=== PATIENT | male | born 1995 | race Caucasian/White ===

== ENCOUNTER 2016-06-28 12:09 | Emergency (ER) | payer BC, OTHER ==
--- NOTE | 2016-06-28 12:55 | Emergency Department Record ---
History of Present Illness - General Chief Complaint: Cough Stated Complaint: COUGHING/SOB Time Seen by Provider: 06/28/16 12:44 Source: Patient Mode of Arrival: Ambulatory - History of Present Illness Initial Comments: cough and [facility] at [facility] chest xray and flu neg 3 days ago and he is still coughing and returned to the ED Complaint: Cough Onset/Timin -: Week(s) Consistency: Intermittent - Related Data Allergies Allergy/AdvReac Type Severity Reaction Status Date / Time No Known Allergies Allergy NONE Verified 06/28/16 12:27 Travel Screening - Travel/Exposure Within Last 30 Days Have you traveled within the last 30 days?: No - Travel/Exposure Within Last Year Have you traveled outside the [place] in the last year?: No - Additonal Travel Details Have you been exposed to anyone with a communicable illness?: No - Travel Symptoms Symptom Screening: None Review of Systems Reviewed: No additional complaints except as noted below Constitutional: Reports: As per HPI. Denies: Chills, Fever, Malaise, Night sweats, Weakness, Weight change Eyes: Reports: As per HPI. Denies: Eye discharge, Eye pain, Photophobia, Vision change ENT: Reports: As per HPI, Congestion, Throat pain. Denies: Dental pain, Ear pain, Epistaxis, Hearing loss Respiratory: Reports: As per HPI, Cough. Denies: Dyspnea, Hemoptysis, Stridor, Wheezes Cardiovascular: Reports: As per HPI. Denies: Arrhythmia, Chest pain, Dyspnea on exertion, Edema, Murmurs, Orthopnea, Palpitations, Paroxysmal nocturnal dyspnea, Rheumatic Fever, Syncope Endocrine: Reports: As per HPI. Denies: Fatigue, Heat or cold intolerance, Polydipsia, Polyuria Gastrointestinal: Reports: As per HPI. Denies: Abdominal pain, Constipation, Diarrhea, Hematemesis, Hematochezia, Melena, Nausea, Vomiting Genitourinary: Reports: As per HPI. Denies: Dysuria, Frequency, Hematuria, Incontinence, Retention, Testicular pain, Testicular mass, Urgency Musculoskeletal: Reports: As per HPI. Denies: Arthralgia, Back pain, Gout, Joint swelling, Myalgia, Neck pain Skin: Reports: As per HPI. Denies: Bruising, Change in color, Change in hair/ nails, Lesions, Pruritus, Rash Neurological: Reports: As per HPI. Denies: Abnormal gait, Confusion, Headache, Numbness, Paresthesias, Seizure, Tingling, Tremors, Vertigo, Weakness Psychiatric: Reports: As per HPI. Denies: Anxiety, Auditory hallucinations, Depression, Homicidal thoughts, Suicidal thoughts, Visual hallucinations Hematological/Lymphatic: Reports: As per HPI. Denies: Anemia, Blood Clots, Easy bleeding, Easy bruising, Swollen glands Past Medical History - SOCIAL HISTORY Smoking Status: Current some day smoker Alcohol Use: Occassional Drug Use: None - RESPIRATORY Hx Respiratory Disorders: No - CARDIOVASCULAR Hx Cardio Disorders: No - NEURO Hx Neuro Disorders: No - GI Hx GI Disorders: No - Hx Genitourinary Disorders: No - ENDOCRINE Hx Endocrine Disorders: No - MUSCULOSKELETAL Hx Musculoskeletal Disorders: No - PSYCH Hx Psych Problems: No - HEMATOLOGY/ONCOLOGY Hx Hematology/Oncology Disorders: No Family Medical History Any Significant Family History?: No Physical Exam - General General Appearance: Alert, Oriented x3, Cooperative, No acute distress - Head Head exam: Normal inspection - Eye Eye exam: Normal appearance, PERRL Pupils: Normal accommodation - ENT ENT exam: Normal exam, Mucous membranes moist, Normal external ear exam, Normal orophraynx, TM's normal bilaterally Ear exam: Normal external inspection. negative: External canal tenderness Nasal Exam: Normal inspection. negative: Discharge, Sinus tenderness Mouth exam: Normal external inspection, Tongue normal Teeth exam: Normal inspection. negative: Dental caries Throat exam: Normal inspection. negative: Tonsillar erythema, Tonsillar exudate - Neck Neck exam: Normal inspection, Full ROM. negative: Tenderness - Respiratory Respiratory exam: Normal lung sounds bilaterally. negative: Respiratory distress - Cardiovascular Cardiovascular Exam: Regular rate, Normal rhythm, Normal heart sounds - GI/Abdominal GI/Abdominal exam: Soft, Normal bowel sounds. negative: Tenderness - Rectal Rectal exam: Deferred - exam: Deferred - Extremities Extremities exam: Normal inspection, Full ROM, Normal capillary refill. negative: Tenderness - Back Back exam: Reports: Normal inspection, Full ROM. Denies: Muscle spasm, Rash noted, Tenderness - Neurological Neurological exam: Alert, Normal gait, Oriented X3, Reflexes normal - Psychiatric Psychiatric exam: Normal affect, Normal mood - Skin Skin exam: Dry, Intact, Normal color, Warm Course Vital Signs 06/28/16 12:27 Temperature 98.8 F Pulse Rate 81 Respiratory 20 Rate Blood Pressure 123/83 Pulse Ox 98 Medical Decision Making - Data Complexity MDM Data: Labs Ordered and/or Reviewed (flu positive) - Lab Data Result diagrams: 06/28/16 13:50 Disposition Clinical Impression: Influenza B Disposition: Home, Self-Care Condition: (1) Good Instructions: Influenza (ED) Additional Instructions: fluids and rest follow up with family in 5 days kermit NGUYEN two teaspoons every 4 hours Forms: Patient Portal Access Time of Disposition: 14:17
[2016-06-28 13:55] LABS: HEMATOCRIT 44.2 % (42.0-52.0); HEMOGLOBIN 15.2 gm/dl (14.0-18.0); MEAN CELL VOLUME 89.5 fl (81-97); MEAN CORPUSCULAR HEMOGLOBIN 30.8 pg (27-33); MEAN CORPUSCULAR HGB CONC 34.4 g/dl (32-36); MEAN PLATELET VOLUME 10.3 fl (7.4-10.4); PLATELET COUNT 214 K/uL (130-400); RED BLOOD COUNT 4.94 M/uL (4.40-5.70); RED CELL DISTRIBUTION WIDTH 12.5 % (11.5-14.5); WHITE BLOOD COUNT W/O DIFF 7.7 K/uL (4.2-12.2)
[2016-06-28 14:07] LABS: INFLUENZA A NEGATIVE (NEGATIVE); INFLUENZA B POSITIVE (NEGATIVE)
== END 2016-06-28 14:38 | disposition home or self-care (01) ==
LOC: ER 12:09
DX: J10.1 Influenza due to other identified influenza virus with other respiratory manifestations (principal); R06.02 Shortness of breath
CPT/HCPCS: 85027; 87400; 99283

== ENCOUNTER 2016-09-07 10:53 | Emergency (ER) | payer BC ==
[2016-09-07] MEDS ORDERED: 0.9 % SODIUM CHLORIDE 1,000 ML BAG IV ONE (11:07)
--- NOTE | 2016-09-07 11:07 | Emergency Department Record ---
History of Present Illness - General Chief Complaint: Abdominal Pain Stated Complaint: ABD PAIN Time Seen by Provider: 09/07/16 10:57 Source: Patient Mode of Arrival: Ambulatory Limitations: No limitations - History of Present Illness Initial Comments: 21 yo male presents with one month of recurring left sided chest pain that last 5-20 minutes and is sharp. It is only on the left. No shortness of breath. He has a mild cough that is normal from his smoking. The last 24 hours he has had left sided abdominal pain that is sharp and he thinks he feels a lump. No NVD. No hematuria. No rash. No fever. No history of heart or lung disease. No abdominal surgery history. MD Complaint: Abdominal pain -: Month(s) Location: L Flank, LUQ Radiation: L flank Migration to: L Flank Severity: Moderate Quality: Sharp Consistency: Intermittent Improves With: Rest Worsens With: Movement Associated Symptoms: Denies other symptoms - Related Data Home Medications Medication Instructions Recorded Confirmed Last Taken No Home Med [NO HOME MEDS] 09/07/16 09/07/16 Unknown Allergies Allergy/AdvReac Type Severity Reaction Status Date / Time No Known Allergies Allergy NONE Verified 09/07/16 11:02 Review of Systems Constitutional: Denies: Chills, Fever, Malaise, Weakness Eyes: Denies: Eye discharge ENT: Denies: Congestion, Ear pain, Epistaxis, Throat pain Respiratory: Reports: Cough. Denies: Dyspnea, Hemoptysis, Stridor, Wheezes Cardiovascular: Reports: Chest pain. Denies: Palpitations, Syncope Endocrine: Denies: Fatigue, Polydipsia, Polyuria Gastrointestinal: Reports: As per HPI, Abdominal pain. Denies: Diarrhea, Nausea , Vomiting Genitourinary: Denies: Dysuria, Frequency, Hematuria Musculoskeletal: Denies: Arthralgia, Back pain, Joint swelling, Myalgia, Neck pain Skin: Denies: Bruising, Change in color, Rash Neurological: Denies: Headache, Numbness, Vertigo, Weakness Psychiatric: Denies: Anxiety Hematological/Lymphatic: Denies: Blood Clots, Easy bleeding, Easy bruising, Swollen glands Past Medical History - SOCIAL HISTORY Smoking Status: Current some day smoker Drug Use: None - RESPIRATORY Hx Respiratory Disorders: No - CARDIOVASCULAR Hx Cardio Disorders: No - NEURO Hx Neuro Disorders: No - GI Hx GI Disorders: No - Hx Genitourinary Disorders: No - ENDOCRINE Hx Endocrine Disorders: No - MUSCULOSKELETAL Hx Musculoskeletal Disorders: No - PSYCH Hx Psych Problems: No - HEMATOLOGY/ONCOLOGY Hx Hematology/Oncology Disorders: No Physical Exam - General General Appearance: Alert, Oriented x3, Cooperative, No acute distress Limitations: No limitations - Head Head exam: Normal inspection - Eye Eye exam: Normal appearance, PERRL. negative: Conjunctival injection, Periorbital swelling - ENT ENT exam: Normal exam Ear exam: Normal external inspection Nasal Exam: Normal inspection Mouth exam: Normal external inspection Teeth exam: Normal inspection Throat exam: Normal inspection - Neck Neck exam: Normal inspection, Full ROM. negative: Tenderness - Respiratory Respiratory exam: Normal lung sounds bilaterally, Chest wall tenderness. negative: Accessory muscle use, Decreased breath sounds, Prolonged expiratory, Rales, Respiratory distress, Rhonchi, Stridor, Wheezes - Cardiovascular Cardiovascular Exam: Regular rate, Normal rhythm, Normal heart sounds Peripheral Pulses: 2+: Radial (R), Radial (L) - GI/Abdominal GI/Abdominal exam: Soft, Tenderness (tender left lateral abdomen, no mass, no hernia). negative: Distended, Guarding, Hernia, Rebound, Rigid - Rectal Rectal exam: Deferred - exam: Deferred - Extremities Extremities exam: Normal inspection, Full ROM, Normal capillary refill. negative: Tenderness - Back Back exam: Reports: Normal inspection, CVA tenderness (L). Denies: Full ROM, Paraspinal tenderness - Neurological Neurological exam: Alert, Normal gait, Oriented X3, Reflexes normal - Psychiatric Psychiatric exam: Normal affect, Normal mood Course - Reevaluation(s) Reevaluation #1: EKG 11:11 NSR rate 81, Intervals normal, [place] normal, ST no acute changes, normal variant early repol. 09/07/16 11:25 Reevaluation #2: The CBC and UA were reviewed and are normal. 09/07/16 11:51 Reevaluation #3: There are no acute changes on his BMP I preliminarily reviewed the CXR and CT of the abdomen and pelvis. No acute changes noted. The final reads will be reviewed as well. The patient is resting comfortably. 09/07/16 12:01 Reevaluation #4: final CXR and CT reports reviewed. No acute changes or findings. 09/07/16 12:44 Medical Decision Making - Lab Data Result diagrams: 09/07/16 11:14 09/07/16 11:14 Disposition Disposition: Discharge Clinical Impression: Atypical chest pain Abdominal pain Qualifiers: Abdominal location: unspecified location Qualified Code(s): R10.9 - Unspecified abdominal pain Disposition: Home, Self-Care Condition: (1) Good Instructions: Abdominal Pain (ED) Additional Instructions: Call your doctor in the family medicine clinic for close follow up of your pains and to review the tests performed today in the ER Return if worse, fever, short of breath, fever, or any new concerns Forms: Patient Portal Access Time of Disposition: 12:45
[2016-09-07] MEDS ORDERED: KETOROLAC 30 MG/ML VIAL IVP ONE (11:11)
[2016-09-07 11:48] LABS: BASO % 0.6 % (0-6); EOS % 0.4 % (0-6); GRAN % 68.9 % (47-80); HEMATOCRIT 42.1 % (42.0-52.0); HEMOGLOBIN 14.9 gm/dl (14.0-18.0); LYMPH % 21.6 % (16-45); MEAN CELL VOLUME 87.9 fl (81-97); MEAN CORPUSCULAR HEMOGLOBIN 31.1 pg (27-33); MEAN CORPUSCULAR HGB CONC 35.4 g/dl (32-36); MEAN PLATELET VOLUME 10.6 fl (7.4-10.4); MONO % 8.5 % (0-9); PLATELET COUNT 247 K/uL (130-400); RED BLOOD COUNT 4.79 M/uL (4.40-5.70); RED CELL DISTRIBUTION WIDTH 11.9 % (11.5-14.5); URINE APPEARANCE CLEAR; URINE BILIRUBIN NEGATIVE (NEGATIVE); URINE BLOOD NEGATIVE (NEGATIVE); URINE COLOR YELLOW; URINE GLUCOSE (UA) NEGATIVE (NEGATIVE); URINE KETONE NEGATIVE (NEGATIVE); URINE LEUKOCYTE ESTERASE NEGATIVE (NEGATIVE); URINE NITRITE NEGATIVE (NEGATIVE); URINE PROTEIN NEGATIVE (NEGATIVE); URINE UROBILINOGEN 0.2 E.U./dL (0.20 - 1.00); WHITE BLOOD COUNT W/O DIFF 4.8 K/uL (4.2-12.2)
[2016-09-07 11:59] LABS: ANION GAP 8.2 (7-16); BLOOD UREA NITROGEN 17 mg/dL (9-20); CARBON DIOXIDE 25.8 mmol/L (22-30); CREATININE 0.9 mg/dL (0.66-1.25); EST GLOMERULAR FILTRATION RATE > 60 ml/min; GLUCOSE,RANDOM 94 mg/dL (70-110)
--- NOTE | 2016-09-07 15:04 | RADIOLOGY REPORT ---
EXAM: CHEST, TWO VIEWS HISTORY: DIZZINESS, LEFT SIDED CHEST PAIN. TECHNIQUE: PA and lateral views of the chest were obtained. Comparison: Two view chest 06/26/16. FINDINGS: The heart size is normal. The lungs appear expanded with no acute infiltrate seen. No pleural effusion or pneumothorax evident. No significant soft change identified from the prior study. IMPRESSION: NEGATIVE CHEST EXAMINATION. JOB NUMBER: [id number] MTDD
--- NOTE | 2016-09-07 15:10 | CT SCAN REPORT ---
EXAM: CT OF THE ABDOMEN AND PELVIS WITHOUT CONTRAST HISTORY: LEFT LOWER QUADRANT SHARP PAIN FOR A DAY, FLANK PAIN. TECHNIQUE: Axial CT scan of the abdomen and pelvis was performed without oral or IV contrast. Comparison: None. FINDINGS: No calcified gallstones are seen within the gallbladder. No intrarenal calculus identified on either side. No hydronephrosis or hydroureter is seen on either side. As such it is quite difficult to follow the entire course of both ureters in their nondilated state throughout the retroperitoneum and pelvis, but no definite ureteral calculus identified and no bladder calculus seen. Evaluation of the bowel and viscera is very limited without oral or IV contrast. Given this limitation, no definite hepatic, splenic, adrenal, pancreatic, or renal mass identified. The appendix appears to be visualized as a normal caliber structure with no appendicitis evident. Some thin collections of air in the right lower quadrant are probably actually intraluminal in relatively collapsed small bowel loops. No convincing evidence of free intraperitoneal air or free intraperitoneal fluid evident. The lung bases appear clear. IMPRESSION: 1. NO DEFINITE URINARY TRACT CALCULI OR HYDRONEPHROSIS IDENTIFIED. 2. THE APPENDIX APPEARS NEGATIVE. NO DEFINITE FREE AIR OR FREE FLUID EVIDENT. JOB NUMBER: [id number] MTDD
== END 2016-09-07 13:18 | disposition home or self-care (01) ==
LOC: ER 10:53
DX: R07.89 Other chest pain (principal); R10.12 Left upper quadrant pain; R42 Dizziness and giddiness; R20.0 Anesthesia of skin; F17.210 Nicotine dependence, cigarettes, uncomplicated
CPT/HCPCS: 99284 ×2; 96374; 96361; 83690; 85025; 80048; 81003; 71020; 74176; 93005; 93010; J1885; J7030

== ENCOUNTER 2017-12-18 23:55 | Emergency (ER) | payer BC ==
[2017-12-19] MEDS ORDERED: ONDANSETRON HCL IV 4 MG/2 ML VIAL IVP ONE (00:04)
[2017-12-19] MEDS ORDERED: MORPHINE SULFATE 10 MG/ML VIAL IVP ONE (00:04)
--- NOTE | 2017-12-19 00:09 | Emergency Department Record ---
History of Present Illness - General Chief Complaint: Abdominal Pain Stated Complaint: ABDOMINAL PAIN Source: Patient Mode of Arrival: Ambulatory Limitations: No limitations - History of Present Illness Initial Comments: 22 yo male presents to ED for evaluation of RLQ pain symptoms that began approximately 7-8 hours ago. Patient reports that his symptoms came on suddenly this afternoon, denies flank pain symptoms of hematuria. Patient denies fevers, chills, or recent illness. Patient denies previous surgery. Patient denies health problems at his baseline other than scoliosis. MD Complaint: Abdominal pain Onset/Timin -: Hour(s) Location: RLQ Radiation: None Migration to: No migration Severity: Severe Quality: Sharp, Stabbing Consistency: Constant Improves With: Nothing Worsens With: Movement Associated Symptoms: Denies other symptoms - Related Data Previous Rx's Medication Instructions Recorded Hyoscyamine Sulfate [Levsin-Sl] 0.25 mg SL Q8H PRN #15 tab.subl 12/19/17 Allergies Allergy/AdvReac Type Severity Reaction Status Date / Time No Known Allergies Allergy NONE Unverified 05/23/17 09:30 Review of Systems Constitutional: Denies: Chills, Fever, Malaise, Night sweats Eyes: Denies: Eye discharge, Eye pain ENT: Denies: Congestion, Ear pain, Epistaxis Respiratory: Denies: Cough, Dyspnea Cardiovascular: Denies: Chest pain, Dyspnea on exertion Endocrine: Denies: Fatigue, Heat or cold intolerance Gastrointestinal: Reports: Abdominal pain. Denies: Nausea, Vomiting Genitourinary: Denies: Testicular pain, Testicular mass Musculoskeletal: Denies: Arthralgia, Back pain Skin: Denies: Bruising, Change in color Neurological: Denies: Abnormal gait, Confusion, Headache, Seizure Psychiatric: Denies: Anxiety Hematological/Lymphatic: Denies: Anemia, Blood Clots Past Medical History - SOCIAL HISTORY Smoking Status: Current some day smoker Drug Use: None - RESPIRATORY Hx Respiratory Disorders: No - CARDIOVASCULAR Hx Cardio Disorders: No - NEURO Hx Neuro Disorders: No - GI Hx GI Disorders: No - Hx Genitourinary Disorders: No - ENDOCRINE Hx Endocrine Disorders: No - MUSCULOSKELETAL Hx Musculoskeletal Disorders: No - PSYCH Hx Psych Problems: No - HEMATOLOGY/ONCOLOGY Hx Hematology/Oncology Disorders: No Physical Exam - General General Appearance: Alert, Oriented x3, Cooperative, Moderate distress Limitations: No limitations - Head Head exam: Atraumatic, Normocephalic, Normal inspection Head exam detail: negative: Abrasion, Contusion, Vasquez's sign, General tenderness, Hematoma, Laceration - Eye Eye exam: Normal appearance. negative: Conjunctival injection, Periorbital swelling, Periorbital tenderness, Scleral icterus - ENT Ear exam: negative: Auricular hematoma, Auricular trauma Nasal Exam: negative: Active bleeding, Discharge, Dried blood, Foreign body Mouth exam: negative: Drooling, Laceration, Muffled voice, Tongue elevation - Neck Neck exam: Normal inspection. negative: Meningismus, Tenderness - Respiratory Respiratory exam: Normal lung sounds bilaterally. negative: Rales, Respiratory distress, Rhonchi, Stridor - Cardiovascular Cardiovascular Exam: Regular rate, Normal rhythm, Normal heart sounds - GI/Abdominal GI/Abdominal exam: Soft, Tenderness (TTP suprapubic/RLQ on examination, no rebound or guarding present). negative: Rebound, Rigid - Rectal Rectal exam: Deferred - exam: Deferred - Extremities Extremities exam: Normal inspection. negative: Calf tenderness, Pedal edema, Tenderness - Back Back exam: Denies: CVA tenderness (R), CVA tenderness (L) - Neurological Neurological exam: Alert, Normal gait, Oriented X3 - Psychiatric Psychiatric exam: Normal affect, Normal mood - Skin Skin exam: Normal color. negative: Abrasion Type of lesion: negative: abrasion Course Vital Signs 12/18/17 23:59 Temperature 97.7 F Pulse Rate [ 92 H Pulse Ox Probe] Respiratory 24 Rate Blood Pressure 134/89 [Left Arm] Pulse Ox 100 - Reevaluation(s) Reevaluation #1: 12/19/17 00:33 Laboratory studies were reviewed and are grossly unremarkable for an acute process. UA pending. Reevaluation #2: 12/19/17 01:00 Patient was reassessed following return from CT imaging, reports improvement in his pain symptoms. Reevaluation #3: 12/19/17 01:26 CT Abdomen and Pelvis: No acute process identified Reevaluation #4: 12/19/17 01:41 UA reviewed and appears negative for blood or infection. Patient reports pain is staring to return, Toradol ordered to infuse. Reevaluation #5: 12/19/17 02:13 Patient reports that his pain symptoms have resolved, repeat abdominal examination is benign and pain free. Patient appears stable for discharge at this time with Levsin as needed for his pain symptoms. Medical Decision Making - Lab Data Result diagrams: 12/19/17 00:10 12/19/17 00:10 Disposition Disposition: Discharge Clinical Impression: Abdominal pain Qualifiers: Abdominal location: right lower quadrant Qualified Code(s): R10.31 - Right lower quadrant pain Disposition: Home, Self-Care Condition: (2) Stable Instructions: Abdominal Pain (ED) Additional Instructions: Return to ED if your symptoms worsen or if you have any concerns. Follow-up with your family doctor in 1-3 days as directed. Levsin as directed. Prescriptions: Hyoscyamine Sulfate [Levsin-Sl] 0.25 mg SL Q8H PRN #15 tab.subl PRN Reason: Abdominal Pain Forms: Patient Portal Access Time of Disposition: 01:27 Quality - Quality Measures Quality Measures: N/A - Blood Pressure Screening Does Patient Have Any of the Following: No Blood Pressure Classification: Pre-Hypertensive BP Reading Systolic Measurement: 134 Diastolic Measurement: 89 Screening for High Blood Pressure: < Pre-Hypertensive BP, F/U Documented > [ G8950] Pre-Hypertensive Follow-up Interventions: Referral to alternative/primary care provider.
[2017-12-19 00:14] LABS: BASO % 0.2 % (0-6); EOS % 0.6 % (0-6); GRAN % 75.1 % (47-80); HEMATOCRIT 46.1 % (42.0-52.0); HEMOGLOBIN 16.6 gm/dl (14.0-18.0); LYMPH % 17.6 % (16-45); MEAN CELL VOLUME 88.3 fl (81-97); MEAN CORPUSCULAR HEMOGLOBIN 31.8 pg (27-33); MEAN PLATELET VOLUME 9.9 fl (7.4-10.4); MONO % 6.5 % (0-9); PLATELET COUNT 279 K/uL (130-400); RED BLOOD COUNT 5.22 M/uL (4.40-5.70); RED CELL DISTRIBUTION WIDTH 12.1 % (11.5-14.5); WHITE BLOOD COUNT W/O DIFF 8.6 K/uL (4.2-12.2)
[2017-12-19] MEDS ORDERED: 0.9 % SODIUM CHLORIDE 1000ML 1,000 ML IV SCH (00:15)
[2017-12-19 00:26] LABS: BLOOD UREA NITROGEN 18 mg/dL (6-20); CREATININE 0.9 mg/dL (0.7-1.2); EST GLOMERULAR FILTRATION RATE > 60 mL/min
[2017-12-19 00:27] LABS: TOTAL PROTEIN 7.5 g/dL (6.6-8.7)
[2017-12-19 00:29] LABS: GLUCOSE,RANDOM 139 mg/dL (74-109)
[2017-12-19 00:32] LABS: ALB/GLOB RATIO 1.9 (1.1-1.8); ALBUMIN 4.9 g/dL (4.0-5.0); ALKALINE PHOSPHATASE 62 U/L (40-129); ALT/SGPT 15 U/L (<41); AST/SGOT 19 U/L (10.0-50.0); LIPASE 34 U/L (13-60)
[2017-12-19] MEDS ORDERED: NICOTINE14 MG/24 HOUR PATCH TD SCH (01:30)
[2017-12-19 01:40] LABS: URINE APPEARANCE CLEAR; URINE BILIRUBIN NEGATIVE (NEGATIVE); URINE BLOOD NEGATIVE (NEGATIVE); URINE COLOR YELLOW; URINE GLUCOSE (UA) NEGATIVE (NEGATIVE); URINE KETONE NEGATIVE (NEGATIVE); URINE LEUKOCYTE ESTERASE NEGATIVE (NEGATIVE); URINE NITRITE NEGATIVE (NEGATIVE); URINE PROTEIN NEGATIVE (NEGATIVE); URINE UROBILINOGEN 0.2 E.U./dL (0.20 - 1.00)
[2017-12-19] MEDS ORDERED: KETOROLAC 30 MG/ML VIAL IVP ONE (01:40)
[2017-12-19] MEDS ORDERED: HYOSCYAMINE SULFATE ODT 0.125 MG TAB.SUBL SL ONE (02:14)
== END 2017-12-19 02:28 | disposition home or self-care (01) ==
LOC: ER 23:55
DX: R10.31 Right lower quadrant pain (principal); F17.210 Nicotine dependence, cigarettes, uncomplicated
CPT/HCPCS: 99284 ×2; 96374; 96375; 83690; 85025; 80053; 81003; 74176; J1980; J1885; J2405; J2270; J7030

== ENCOUNTER 2019-02-26 19:40 | Emergency (ER) | payer BC ==
--- NOTE | 2019-02-26 19:57 | Emergency Department Record ---
History of Present Illness - General Stated complaint: FEELS LIKE SOMETHING IN THROAT Time Seen by Provider: 02/26/19 19:47 Source: Patient Mode of Arrival: Ambulatory Limitations: No limitations - History of Present Illness Initial comments: 23 yo male presents to ED for evaluation of difficulty in swallowing, reports "it feels like there is a golfball in my throat". Patient reports that he has been able to eat and drink, controlling secretions, and denies vomiting symptoms. Patient denies trauma or injury to the area. Patient denies ingestion of fish or bony foods prior to the onset of his symptoms. Patient denies health problems at his baseline. MD complaint: Difficulty swallowing Onset/Timin -: Days(s) Location: Throat Consistency: Intermittent Worsens with: Swallowing - Related Data Home Medications Medication Instructions Recorded Confirmed Last Taken No Home Med [NO HOME MEDS] 02/26/19 02/26/19 Unknown Allergies Allergy/AdvReac Type Severity Reaction Status Date / Time No Known Allergies Allergy NONE Verified 02/26/19 20:01 Review of Systems Constitutional: Denies: Chills, Fever, Malaise, Night sweats Eyes: Denies: Eye discharge, Eye pain ENT: Reports: Throat pain. Denies: Congestion, Ear pain, Epistaxis Respiratory: Denies: Cough, Dyspnea Cardiovascular: Denies: Chest pain, Dyspnea on exertion Endocrine: Denies: Fatigue, Heat or cold intolerance Gastrointestinal: Denies: Abdominal pain, Nausea, Vomiting Genitourinary: Denies: Incontinence, Retention Musculoskeletal: Denies: Arthralgia, Back pain Skin: Denies: Bruising, Change in color Neurological: Denies: Abnormal gait, Confusion, Headache, Seizure Psychiatric: Denies: Anxiety Hematological/Lymphatic: Denies: Anemia, Blood Clots Past Medical History - SOCIAL HISTORY Smoking Status: Current some day smoker Drug Use: None - RESPIRATORY Hx Respiratory Disorders: No - CARDIOVASCULAR Hx Cardio Disorders: No - NEURO Hx Neuro Disorders: No - GI Hx GI Disorders: No - Hx Genitourinary Disorders: No - ENDOCRINE Hx Endocrine Disorders: No - MUSCULOSKELETAL Hx Musculoskeletal Disorders: No - PSYCH Hx Psych Problems: No - HEMATOLOGY/ONCOLOGY Hx Hematology/Oncology Disorders: No Physical Exam - General General Appearance: Alert, Oriented x3, Cooperative, Mild distress, Other (Patient is drinking fluids well without difficulty) Limitations: No limitations - Head Head exam: Atraumatic, Normocephalic, Normal inspection Head exam detail: negative: Abrasion, Contusion, Vasquez's sign, General tenderness, Hematoma, Laceration - Eye Eye exam: Normal appearance. negative: Conjunctival injection, Periorbital swelling, Periorbital tenderness, Scleral icterus - ENT Ear exam: negative: Auricular hematoma, Auricular trauma Nasal Exam: negative: Active bleeding, Discharge, Dried blood, Foreign body Mouth exam: negative: Drooling, Laceration, Muffled voice, Tongue elevation - Neck Neck exam: Normal inspection. negative: Meningismus, Tenderness - Respiratory Respiratory exam: Normal lung sounds bilaterally. negative: Rales, Respiratory distress, Rhonchi, Stridor - Cardiovascular Cardiovascular Exam: Regular rate, Normal rhythm, Normal heart sounds - GI/Abdominal GI/Abdominal exam: Soft. negative: Rebound, Rigid, Tenderness - Rectal Rectal exam: Deferred - exam: Deferred - Extremities Extremities exam: Normal inspection. negative: Pedal edema, Tenderness - Back Back exam: Denies: CVA tenderness (R), CVA tenderness (L) - Neurological Neurological exam: Alert, Normal gait, Oriented X3 - Psychiatric Psychiatric exam: Normal affect, Normal mood - Skin Skin exam: Normal color. negative: Abrasion Type of lesion: negative: abrasion Course Vital Signs 02/26/19 19:49 Temperature 98.4 F Pulse Rate [ 76 Pulse Ox Probe] Respiratory 20 Rate Blood Pressure 145/91 [Left Arm] Pulse Ox 97 - Reevaluation(s) Reevaluation #1: 02/26/19 20:55 Soft-tissue neck: Limited study, no acute process, no radio-opaque FB identified. Patient was updated on all results Decadron was given in ED for patient's symptoms Patient is able to tolerate liquids without difficulty, no evidence for impacted/obstructing esophageal food bolus. Patient reports feeling much improved following oral decadron. Patient appears stable for discharge at this time. Disposition Disposition: Discharge Clinical Impression: Dysphagia Qualifiers: Dysphagia type: esophageal phase Qualified Code(s): R13.10 - Dysphagia, unspecified Disposition: Home, Self-Care Condition: (2) Stable Instructions: Dysphagia (ED) Additional Instructions: Return to ED if your symptoms worsen or if you have any concerns. Follow-up with your family doctor in 3-5 days as directed. Forms: Patient Portal Access Time of Disposition: 20:57 Quality - Quality Measures Quality Measures: N/A - Blood Pressure Screening Does Patient Have Any of the Following: No Blood Pressure Classification: Hypertensive Reading Systolic Measurement: 145 Diastolic Measurement: 91 Screening for High Blood Pressure: < First Hypertensive BP, F/U Documented > [G8950] First Hypertensive Follow-up Interventions: Referral to alternative/primary care provider.
[2019-02-26] MEDS: DEXAMETHASONE SOD PHOSPHATE 10MG/ML VIAL PO ONE (20:45)
--- NOTE | 2019-02-26 20:53 | RADIOLOGY REPORT ---
EXAMINATION: Soft Tissue Neck EXAM DATE: 02/26/2019 8:38 PM TECHNIQUE: AP and lateral INDICATION: neck pain COMPARISON: None ENCOUNTER: Initial FINDINGS: Limited study due to technical factors. Neck is flexed. Epiglottis and aryepiglottic folds are normal . Prevertebral soft tissues unremarkable. No radiopaque foreign body IMPRESSION: Limited study due to technical factors. No acute abnormality Dictated by: Prasad Browning MD on 02/26/2019 8:51 PM. .
== END 2019-02-26 21:00 | disposition home or self-care (01) ==
LOC: ER 19:40
DX: R13.10 Dysphagia, unspecified (principal); F17.210 Nicotine dependence, cigarettes, uncomplicated
CPT/HCPCS: 70360; 99283